=== PATIENT | male | born 1960 | race Caucasian/White ===

== ENCOUNTER → 2024-02-19 06:58 | Outpatient (REF) | payer BC, SELFPAY | LOC: PAVMRI 06:58 | PROVIDERS: ATTENDING PHYSICIAN Physician Assistant Surgical; FAMILY PHYSICIAN Family Medicine | DX: M54.2 Cervicalgia (principal); M54.12 Radiculopathy, cervical region; Z98.1 Arthrodesis status | CPT/HCPCS: 72141 ==

== ENCOUNTER → 2024-09-28 11:26 | Outpatient (REF) | payer OTHER, SELFPAY | LOC: REG 11:26 | PROVIDERS: ATTENDING PHYSICIAN Internal Medicine | DX: J40 Bronchitis, not specified as acute or chronic (principal) | CPT/HCPCS: 71046 ==